=== PATIENT | female | born 1985 | race Caucasian/White ===

== ENCOUNTER 2019-04-22 07:47 | Day surgery (SDC) | payer BC ==
[~2019-04-22] VITALS: Ht 175.3 cm; Wt 134.0 kg
[2019-04-22 08:20] VITALS: BP 123/87
== END 2019-04-22 15:30 | disposition home or self-care (01) ==
LOC: OUT 07:47
PROVIDERS: ATTEND Orthopaedic Surgery
DX: M24.671 Ankylosis, right ankle (principal); M93.271 Osteochondritis dissecans, right ankle and joints of right foot; Q66.89 Other specified congenital deformities of feet; F32.9 Major depressive disorder, single episode, unspecified; E66.01 Morbid (severe) obesity due to excess calories; Z79.1 Long term (current) use of non-steroidal anti-inflammatories (NSAID); Z79.899 Other long term (current) drug therapy; Z87.891 Personal history of nicotine dependence; Z88.5 Allergy status to narcotic agent; Z82.61 Family history of arthritis
CPT/HCPCS: 28116; 28238; 29891; 29898; 64450; C1713; J0690; J1100; J2250; J2704; J3010; J7120; Q0162

== ENCOUNTER 2019-04-22 17:54 | Emergency (ER) | payer OTHER, BC ==
[~2019-04-22] VITALS: Ht 175.3 cm; Wt 133.6 kg
[2019-04-22 20:13] VITALS: BP 118/74
== END 2019-04-22 20:48 | disposition home or self-care (01) ==
LOC: ED 20:40
DX: S99.811A Other specified injuries of right ankle, initial encounter (principal); Z87.891 Personal history of nicotine dependence; W22.8XXA Striking against or struck by other objects, initial encounter; Y93.89 Activity, other specified; Y92.488 Other paved roadways as the place of occurrence of the external cause; Y99.8 Other external cause status
CPT/HCPCS: 73590; 73600; 73620; 96372; 99283; J3010

== ENCOUNTER 2019-10-04 09:02 | Emergency (ER) | payer BC, MEDICARE ==
[~2019-10-04] VITALS: Ht 175.3 cm; Wt 134.3 kg
[~2019-10-04 09:02] MED LIST: ACET-1600 PO; DULO60CA7 PO; IBUP-1223 PO; NORT25CA78 PO; TURM500C4 PO
[2019-10-04] MEDS ORDERED: SODIUM CHLORIDE FLUSH 10ML SYR IVF ONE (09:30)
[2019-10-04] MEDS ORDERED: ONDANSETRON 2MG/ML, 2ML IVPush ONE (09:30)
--- NOTE | 2019-10-04 09:30 | NUR ---
DR GRAF AT BEDSIDE. PT W/ C/O N/V/D ON THURSDAY AND THURSDAY, LEFT FLANK PAIN RADIATING AROUND TO LUQ AND EPIGASTRIC ABD AREA. DECREASED UOP BUT DENIES PAIN WITH URINATION. PT RPTS HX OF KEDNEY STONES AND UTI'S. PT ASSESSMENT REV WITH DR GRAF AND ORDERS REC'D. URINE SAMPLE SENT TO LAB. CALL LIGHT W/I REACH.
[2019-10-04 09:43] LABS: MICROSCOPIC AUTO
[2019-10-04] MEDS ORDERED: ONDANSETRON 2MG/ML, 2ML ONE (09:43)
[2019-10-04] MEDS ORDERED: MORPHINE SULFATE 4 MG/ML, 1ML ONE ×2 (09:44→10:12)
[2019-10-04] MEDS: MORPHINE SULFATE 4 MG/ML, 1ML IVPush PRN ×2 (09:45→10:13)
[2019-10-04 09:46] LABS: CULTURE INDICATED? YES
[2019-10-04 09:49] LABS: BASOPHILS # (AUTO) 0.03 x10^3/uL (0-0.1); BASOPHILS % (AUTO) 1 % (0-1); EOSINOPHILS # (AUTO) 0.14 x10^3/uL (0-0.4); EOSINOPHILS % (AUTO) 3 % (1-7); LYMPHOCYTES % (AUTO) 34 % (22-44); MD NO; MEAN CORPUSCULAR HEMOGLOBIN 27.5 pg (27.0-34.8); MEAN CORPUSCULAR HGB CONC 33.3 g/dL (32.4-35.8); MEAN CORPUSCULAR VOLUME 82.6 fL (80-100); MEAN PLATELET VOLUME 8.3 fL (7.4-10.4); MONOCYTES # (AUTO) 0.76 x10^3/uL (0.2-0.8); MONOCYTES % (AUTO) 14 % (2-9); NEUTROPHILS # (AUTO) 2.71 x10^3/uL (1.8-6.8); NEUTROPHILS % (AUTO) 49 % (42-75); PLATELET COUNT 303 x10^3/uL (130-400); RED BLOOD COUNT 4.95 x10^6/uL (3.82-5.3); RED CELL DISTRIBUTION WIDTH 13.5 % (9.6-15.2)
[2019-10-04] MEDS ORDERED: PROP60CA36 PO (09:54)
[2019-10-04] MEDS ORDERED: NORT50CA52 PO (09:54)
[2019-10-04 09:59] LABS: ALANINE AMINOTRANSFERASE 37 U/L (12-78); ALBUMIN 2.9 g/dL (3.4-5.0); ANION GAP 7 mmol/L (5-15); CALCIUM 8.5 mg/dL (8.5-10.1); CHLORIDE 107 mmol/L (98-107); CREATININE 0.77 mg/dL (0.55-1.02)
[2019-10-04 10:04] LABS: ALKALINE PHOSPHATASE 140 U/L (45-117); BILIRUBIN,TOTAL 0.3 mg/dL (0.2-1.0); TOTAL PROTEIN 7.4 g/dL (6.4-8.2)
--- NOTE | 2019-10-04 10:16 | NUR ---
PT PAIN 6/10, ADDITIONAL PAIN MEDICATION GIVEN NOTED. SP02 DROP TO 86%, 02 2L NC PLACED WITH EFFECT.
--- NOTE | 2019-10-04 10:19 | NUR ---
ALL TESTS RESULTED, CHART UP FOR RECHECK
--- NOTE | 2019-10-04 10:37 | NUR ---
DR GRAF AT BEDSIDE. TEST RESULTS REVIEWED AND PLAN FOR CT DISCUSSED. PT PAIN IMPROVED NOW 11/14. CALL LIGHT W/I REACH
--- NOTE | 2019-10-04 11:23 | NUR ---
PT TO CT WITH TECH TRANSPORT
--- NOTE | 2019-10-04 11:45 | NUR ---
CT RESULTS POSTED, CHART UP FOR RECHECK
[2019-10-04 12:21] VITALS: BP 118/67
--- NOTE | 2019-10-04 12:22 | NUR ---
Patient/Caregiver given discharge instructions and they have confirmed that they understand the instructions. Patient ambulatory with steady gait.
== END 2019-10-04 12:23 | disposition home or self-care (01) ==
LOC: ED 10:42
DX: N23 Unspecified renal colic (principal); R31.9 Hematuria, unspecified; R11.0 Nausea; E66.9 Obesity, unspecified; Z68.41 Body mass index [BMI] 40.0-44.9, adult
CPT/HCPCS: 36415; 74176; 80053; 81001; 83690; 84703; 85025; 87086; 96374; 96375; 96376; 99284; J2270; J2405